=== PATIENT | female | born 1960 ===

== ENCOUNTER 2016-11-11 22:07 | Inpatient (IN) | payer OTHER ==
--- NOTE | 2016-11-11 22:27 | PDOC ---
History of Present Illness - General Stated Complaint: FEVER POST CHEMOTHERAPY Time Seen by Provider: 11/11/16 22:27 History Source: Patient Exam Limitations: No Limitations - History of Present Illness Initial Comments: 11/11/16 23:14 This is a 55-year-old female who comes in complaining of fever. Patient has history significant for breast cancer and is currently undergoing chemotherapy. Patient's last dose of chemotherapy was 8 days ago. Patient was given Neulasta at that time. Patient was having shaking chills at home and took her temperature and it was 102.6. Patient took a warm bath prior to coming in on arrival in emergency room the recorded temperature was 99.6. Patient did not take anything to bring her temperature down. Patient denies any nausea, vomiting , diarrhea, cough, congestion, urinary symptoms, rashes or skin lesions. PAST MEDICAL HISTORY: no significant history PAST SURGICAL HISTORY: no significant history FAMILY HISTORY: no pertinant history SOCIAL HISTORY: Pt lives with family and is employed. MEDICATIONS: reviewed ALLERGIES: As per nursing notes Review of Systems General: No fevers or chills, no weakness, no weight loss HEENT: No change in vision. No sore throat,. No ear pain CardioVascular: No chest pain or shortness of breath Respiratory:No cough, or wheezing. Gastrointestinal: no nausea, vomitting, diarrhea or constipation, No rectal bleeding Genitourinary: No dysuria, hematuria, or frequency Musculoskeletal: No joint or muscle pain or swelling Neurologic: No headache, vertigo, dizziness or loss of consciousness Psychiatric: nor depression Skin: No rashes or easy bruising Endocrine: no increased thirst or abnormal weight change Allergic: no skin or latex allergy All other systems reviewed and normal Exam: General: Well-nourished well-developed individual, no acute distress HEENT: Throat: Normal, tonsils normal, no erythema or exudate Neck: Supple, no meningeal signs, no lymphadenopathy Eyes::Pupils equal reactive and round, extraocular motion intact Chest: Nontender to palpation Cardiac: S1-S2 normal, regular rate and rhythm, no murmurs rubs or gallops Respiratory: Lungs clear to auscultation bilateral Abdomen: Soft, nondistended, normal bowel sounds, nontender to palpation diffusely Extremities: Warm, dry, no cyanosis, clubbing, or edema Skin: No rashes Neuro: Alert and oriented x3, nonfocal exam, grossly intact, normal gait Psych: Normal mood and affect 11/11/16 23:49 Assessment and plan: This is a 55-year-old female who is currently on chemotherapy. She is a days postchemotherapy with a fever and white count is 0.5. Patients chest x-ray is negative for any infiltrates. Discussed case with patient's doctor is Michelle Little her doctor is a Dr. Roxie Lemus phone number is [phone]. Patient will be admitted to an inpatient [facility] bed to the hospitalist service. Past History - Past Medical History Allergies/Adverse Reactions: Allergies Allergy/AdvReac Type Severity Reaction Status Date / Time sulfur [From Sulfur-8] Allergy Verified 11/11/16 22:11 tetracycline Allergy Verified 11/11/16 22:12 ED Treatment Course - LABORATORY CBC & Chemistry Diagram: 11/11/16 22:45 11/11/16 22:45 *DC/Admit/Observation/Transfer Diagnosis at time of Disposition: Neutropenia with fever, Anemia, Thrombocytopenia, Hyponatremia - Discharge Dispostion Condition at time of disposition: Stable Admit: Yes
[2016-11-11 22:59] LABS: MEAN PLT VOLUME 8.2 fl (7.5-11.1)
[2016-11-11 23:03] LABS: MCH 31.4 pg (25.7-33.7); MCHC 34.4 g/dl (32.0-36.0); MEAN CELL VOLUME 91.3 fl (80-96); RDW 13.8 % (11.6-15.6)
[2016-11-11 23:11] LABS: PH,URINE 7.5 (4.5-8); URINE APPEARANCE Clear; URINE BILIRUBIN Negative (NEGATIVE); URINE GLUCOSE (UA) Negative (NEGATIVE); URINE KETONE Negative (NEGATIVE); URINE LEUK ESTERASE Negative (NEGATIVE); URINE NITRITE Negative (NEGATIVE); URINE UROBILINOGEN 1.0 E.U/dl (0.2-1.0)
[2016-11-11 23:12] LABS: URINE BLOOD 2+ (NEGATIVE); URINE COLOR YELLOW; URINE PROTEIN 1+ (NEGATIVE)
[2016-11-11 23:12] LABS: ALBUMIN 4.2 g/dl (3.5-5.0); ALK PHOS 73 U/L (32-92); ANION GAP 5 (8-16); BILIRUBIN,TOTAL 0.7 mg/dl (0.2-1.0); CALCIUM 9.4 mg/dl (8.4-10.2); CO2 28 mmol/L (22-28); CREATININE 0.6 mg/dl (0.6-1.3); GLUCOSE,RANDOM 127 mg/dl (74-106); SGOT/AST 20 U/L (10-42); SGPT/ALT 18 U/L (10-40); TOT PROT 6.2 g/dl (6.4-8.3)
[2016-11-11 23:21] LABS: PLATELET COUNT 42 K/MM3 (134-434); WHITE BLOOD COUNT 0.5 K/mm3 (4.0-10.0)
[2016-11-11 23:38] LABS: PLATELET ESTIMATE DECREASED (NORMAL)
[2016-11-11] MEDS ORDERED: PIPERACILLIN/TAZOB 3.375 GM/50 ML PRE-DOCKED IVPB STA (23:54)
[2016-11-12] MEDS ORDERED: PIPERACILLIN/TAZOBACTAM 3.375 GM VIAL IVPB ONE (00:03)
[2016-11-12] MEDS ORDERED: CEFTRIAXONE 1 GM in DEXTROSE 5%-WATER - 50 ML IVPB ONE (00:11)
[2016-11-12] MEDS ORDERED: cefTRIAXone SODIUM 1 GM VIAL ONE (00:14)
[2016-11-12] MEDS ORDERED: ONDANSETRON 4 MG/2 ML VIAL IVPB PRN (00:47)
[2016-11-12] MEDS ORDERED: ACETAMINOPHEN 325 MG TABLET (FP) PO PRN (00:47)
--- NOTE | 2016-11-12 01:24 | HP ---
CHIEF COMPLAINT: fever PCP: Oncologist: Dr. Roxie Lemus [phone] HISTORY OF PRESENT ILLNESS: This is a 55 year old female with a past medical history of right breast cancer s/p mastectomy 08/21/16, currently on chemo, last dose 8 days ago who presented to the ED for fever. This was her 4th round of chemo; she is unsure of the drug regimen. Pt reports that she had shaking chills at home so she took her temperature and it was 102.0. She then took a warm bath and went to the ED. Since arrival in ED, her temperature has remained 99.1-99.7. Pt denies cough, SOB, abdominal pain, N/V/D. She reports constipation but finally had a large BM earlier today. ER course was notable for: (1) WBC 0.5 (2) temp 99.7 (3) CXR no acute disease Recent Travel: pt denies PAST MEDICAL HISTORY: BrCA, right PAST SURGICAL HISTORY: right mastectomy Social History: Smoking: pt denies Alcohol: previous occ glass of wine Drugs: pt denies Family History: mother age 82, lung CA, prior h/o colon CA and B/L brCA 10 years apart father age 71, radiation induced CLL, prior h/o laryngeal CA maternal GM lung CA Paternal GM breast CA Allergies erythromycin base Allergy (Verified 11/12/16 00:12)--upset stomach Penicillins Allergy (Verified 11/12/16 00:12)--rash as a child sulfur [From Sulfur-8] Allergy (Verified 11/11/16 22:11)--rash HOME MEDICATIONS: lansoprazole 30mg QD REVIEW OF SYSTEMS CONSTITUTIONAL: Present: fever, chills Absent: diaphoresis, generalized weakness, malaise, loss of appetite, weight change HEENT: Absent: rhinorrhea, nasal congestion, throat pain, throat swelling, difficulty swallowing, mouth swelling, ear pain, eye pain, visual changes CARDIOVASCULAR: Absent: chest pain, syncope, palpitations, irregular heart rate, lightheadedness , peripheral edema RESPIRATORY: Absent: cough, shortness of breath, dyspnea with exertion, orthopnea, wheezing, stridor, hemoptysis GASTROINTESTINAL: Absent: abdominal pain, abdominal distension, nausea, vomiting, diarrhea, constipation, melena, hematochezia GENITOURINARY: Absent: dysuria, frequency, urgency, hesitancy, hematuria, flank pain, genital pain MUSCULOSKELETAL: Absent: myalgia, arthralgia, joint swelling, back pain, neck pain SKIN: Absent: rash, itching, pallor HEMATOLOGIC/IMMUNOLOGIC: Absent: easy bleeding, easy bruising, lymphadenopathy, frequent infections ENDOCRINE: Absent: unexplained weight gain, unexplained weight loss, heat intolerance, cold intolerance NEUROLOGIC: Absent: headache, focal weakness or paresthesias, dizziness, unsteady gait, seizure, mental status changes, bladder or bowel incontinence PSYCHIATRIC: Absent: anxiety, depression, suicidal or homicidal ideation, hallucinations. PHYSICAL EXAMINATION Vital Signs - 24 hr 3 11/11/16 11/11/16 11/12/16 23:14 23:37 01:11 Temperature 99.7 F H 99.1 F 99.5 F Pulse Rate 89 87 Respiratory 18 18 Rate Blood Pressure 121/65 102/59 O2 Sat by Pulse 100 100 Oximetry (%) GENERAL: Awake, alert, and fully oriented, in no acute distress. HEAD: Normal with no signs of trauma. EYES: Pupils equal, round and reactive to light, extraocular movements intact, sclera anicteric, conjunctiva clear. No lid lag. EARS, NOSE, THROAT: Ears normal, nares patent, oropharynx clear without exudates. Moist mucous membranes. NECK: Normal range of motion, supple without lymphadenopathy, JVD, or masses. LUNGS: Breath sounds equal, clear to auscultation bilaterally. No wheezes, and no crackles. No accessory muscle use. HEART: Regular rate and rhythm, normal S1 and S2 without murmur, rub or gallop. ABDOMEN: Soft, nontender, not distended, normoactive bowel sounds, no guarding, no rebound, no masses. No hepatomegaly or splenomegaly. MUSCULOSKELETAL: Normal range of motion at all joints. No bony deformities or tenderness. No CVA tenderness. UPPER EXTREMITIES: 2+ pulses, warm, well-perfused. No cyanosis. No clubbing. No peripheral edema. LOWER EXTREMITIES: 2+ pulses, warm, well-perfused. No calf tenderness. No peripheral edema. NEUROLOGICAL: Cranial nerves II-XII intact. Normal speech. Normal gait. PSYCHIATRIC: Cooperative. Good eye contact. Appropriate mood and affect. SKIN: Warm, dry, normal turgor, no rashes or lesions noted, normal capillary refill. incision site right breast clean, healed well, no erythema, swelling, warmth or obvious fluid collection Laboratory Results - last 24 hr 3 11/11/16 11/11/16 11/11/16 11/12/16 22:45 22:45 23:05 00:15 WBC 0.5 L* RBC 2.89 L Hgb 9.1 L Hct 26.4 L MCV 91.3 MCHC 34.4 RDW 13.8 Plt Count 42 L* MPV 8.2 Neutrophils % 16.0 L Lymphocytes % 9.0 Platelet Estimate Decreased Sodium 129 L Potassium 3.7 Chloride 96 L Carbon Dioxide 28 Anion Gap 5 L BUN 18 Creatinine 0.6 Creat Clearance w eGFR > 60 Random Glucose 127 H Lactic Acid 0.747 Calcium 9.4 Total Bilirubin 0.7 AST 20 ALT 18 Alkaline Phosphatase 73 Total Protein 6.2 L Albumin 4.2 Urine Color Yellow Urine Appearance Clear Urine pH 7.5 Ur Specific Hale 1.015 Urine Protein 1+ H Urine Glucose (UA) Negative Urine Ketones Negative Urine Blood 2+ H Urine Nitrite Negative Urine Bilirubin Negative Urine Urobilinogen 1.0 e.u/dl Ur Leukocyte Esterase Negative ASSESSMENT/PLAN: 55yF with PMH BrCA, currently receiving chemo, presented to ED with fever. She was found to be neutropenic. She is being admitted for further management. Neutropenic fever - ceftriaxone daily - repeat PA / Lat CXR tomorrow - monitor WBC - neutropenic diet and precautions. - consider transfer to [facility], if not transferred would obtain oncology and ID consults. Thrombocytopenia - due to chemo - cont to monitor for now Hyponatremia - NS @ 125cc/hr - repeat labs in am. DVT PPX - deferred secondary to thrombocytopenia FEN - NS @ 125cc/hr - repeat BMP, mag in am - neutropenic diet, no fresh fruits or veggies Dispo: Pt currently requires inpatient management of her emergent condition. Visit type - Emergency Visit Emergency Visit: Yes ED Registration Date: 11/11/16 Care time: The patient presented to the Emergency Department on the above date and was hospitalized for further evaluation of their emergent condition. - New Patient This patient is new to me today: Yes Date on this admission: 11/12/16 - Critical Care Critical Care patient: No
[2016-11-12] MEDS ORDERED: METOCLOPRAMIDE HCL INJECTION 10 MG/2 ML VIAL IVPB PRN (01:25)
[2016-11-12] MEDS ORDERED: SODIUM CHLORIDE 1,000 ML IV SCH ×2 (01:45→10:42)
[2016-11-12 02:46] VITALS: BMI 18.7
--- NOTE | 2016-11-12 08:19 | PN ---
Physical Exam: SUBJECTIVE: Patient seen and examined, reports ongoing chills, denies any cough , chest pain or shortness of breath. OBJECTIVE: patient is a 55 year old female with a past medical history of right breast cancer (melanoma insitu), s/p mastectomy (fiber picker) 08/21/16. patient is on her fourth chemotherapy session (11/22). Her last dose was currently on chemo, last dose was on 11/03/2016, she received neupogen on 2016. patient was admitted from the emergency department for neutropenic fever. oncologist: Dr. Roxie Lemus [phone] Vital Signs Period Temp Pulse Resp BP Sys/Wheeler Pulse Ox Last 24 Hr 99.5 F-100.8 F 78-87 18-19 102-103/52-59 96-100 GENERAL: The patient is awake, alert, and fully oriented, thing, in no acute distress. HEAD: Normal with no signs of trauma. EYES: PERRL, extraocular movements intact, sclera anicteric, conjunctiva pale No ptosis. ENT: Ears normal, nares patent, oropharynx clear without exudates, moist mucous membranes. NECK: Trachea midline, full range of motion, supple. LUNGS: Breath sounds equal, clear to auscultation bilaterally, no wheezes, no crackles, no accessory muscle use. HEART: Regular rate and rhythm, S1, S2 without murmur, rub or gallop. ABDOMEN: Soft, nontender, nondistended, normoactive bowel sounds, no guarding, no rebound, no hepatosplenomegaly, no masses. EXTREMITIES: 2+ pulses, warm, well-perfused, no edema. NEUROLOGICAL: Cranial nerves II through XII grossly intact. Normal speech, gait not observed. PSYCH: Normal mood, normal affect. SKIN: Warm, dry, normal turgor, no rashes or lesions noted, right breast masectomy site,well approximated, no palpable fluid collections, no erythema noted, no tenderness. Laboratory Results - last 24 hr 11/12/16 00:15 Lactic Acid 0.747 CBC WBC 0.5 K/mm3 (4.0-10.0) L* 11/11/16 22:45 RBC 2.89 M/mm3 (3.60-5.2) L 11/11/16 22:45 Hgb 9.1 GM/dl (10.7-15.3) L 11/11/16 22:45 Hct 26.4 % (32.4-45.2) L 11/11/16 22:45 MCV 91.3 fl (80-96) 11/11/16 22:45 MCHC 34.4 g/dl (32.0-36.0) 11/11/16 22:45 RDW 13.8 % (11.6-15.6) 11/11/16 22:45 Plt Count 42 K/MM3 (134-434) L* 11/11/16 22:45 MPV 8.2 fl (7.5-11.1) 11/11/16 22:45 Neutrophils % 16.0 % (42.8-82.8) L 11/11/16 22:45 Lymphocytes % 9.0 % (8-40) 11/11/16 22:45 Platelet Estimate Decreased (NORMAL) 11/11/16 22:45 Active Medications Generic Name Dose Route Start Last Admin Trade Name Freq PRN Reason Stop Dose Admin Acetaminophen 650 mg 11/12/16 00:47 11/12/16 06:29 Tylenol - PO 650 mg Q4H PRN Administration FEVER OR PAIN Sodium Chloride 1,000 mls @ 125 mls/hr 11/12/16 01:45 11/12/16 02:00 Normal Saline - IV 125 mls/hr ASDIR JARAD Administration Metoclopramide HCl 10 mg 11/12/16 01:25 Reglan Injection - IVPB Q6H PRN NAUSEA AND/OR VOMITING Pantoprazole Sodium 40 mg 11/12/16 10:00 Protonix - PO DAILY JARAD imaging chest x-ray 11/11/2016) no infiltrates and effusions noted Chest x-ray (11/12/2016) PA and lat, no infiltrates noted effusions noted ASSESSMENT/PLAN: 1) hem/onc - WBC 1, pt is neutropenic, pending am labs, f/u blood and urine cultures - hgb 7.5, pt is asymptomatic, repeat hgb at 1800, if hgb is less than 7 will transfuse 1 unit of prbc and plt. - chest xray reviewed no infilitrates no effusion noted - cefepime ordered 2gm x 1, appreciate the input of GARCIA Burgso) for antibiotic approval - case discussed with Dr Holman (oncologist, [facility]) advised to hold transfer to [facility] due to neutropenia, agrees with cefepime. - monitor plt likely secondary due to chemo, close monitoring f/e/n - neutropenic diet - NS @ 75ml/hr ppx - protonix - hold ac due to thrombocytopenia dispo: requires inpatient care Visit type - Emergency Visit Emergency Visit: Yes ED Registration Date: 11/11/16 Care time: The patient presented to the Emergency Department on the above date and was hospitalized for further evaluation of their emergent condition. - New Patient This patient is new to me today: No - Critical Care Critical Care patient: No - Discharge Referral Referred to [facility] No
[2016-11-12 09:18] LABS: MCH 31.4 pg (25.7-33.7); MCHC 34.3 g/dl (32.0-36.0); MEAN CELL VOLUME 91.5 fl (80-96); MEAN PLT VOLUME 7.9 fl (7.5-11.1); RDW 13.3 % (11.6-15.6)
[2016-11-12 09:22] LABS: PLATELET COUNT 35 K/MM3 (134-434)
--- NOTE | 2016-11-12 09:42 | PN ---
Progress Note (short form) - Note Progress Note: ID consult dictated Febrile neutropenia, possible neutropenic sepsis R Breast ca s/p 4th cycle AC 11/03/16 PCN allergy Pending c/s empiric cefepime 2gm q8h Neutropenic precautions
[2016-11-12] MEDS ORDERED: CEFEPIME HCL 2 GM VIAL (RESTRICTED TO ID) IVPB ONE (09:45)
[2016-11-12 09:48] LABS: CALCIUM 8.4 mg/dl (8.4-10.2); CREATININE 0.4 mg/dl (0.6-1.3)
[2016-11-12 09:51] LABS: MAGNESIUM 1.8 mg/dL (1.8-2.4); PHOSPHOROUS 2.6 mg/dl (2.5-4.6)
[2016-11-12] MEDS: PANTOPRAZOLE 40 MG TABLET (FP) PO SCH (10:11)
[2016-11-12] MEDS: CEFEPIME HCL 2 GM VIAL (RESTRICTED TO ID) IVPB SCH ×2 (10:12→17:58)
[2016-11-12 11:39] LABS: PLATELET ESTIMATE MARKEDLY DECREASED (NORMAL)
--- NOTE | 2016-11-12 11:39 | CONS ---
DATE OF CONSULTATION: DATE OF DICTATION: 11/12/2016 HISTORY OF PRESENT ILLNESS: The patient is a 55-year-old female evaluated for febrile neutropenia. The patient has a history of right breast CA. She is status post mastectomy and chemotherapy. She completed her fourth cycle of Adriamycin and Cytoxan on Thursday, November 03, 2016. She began to feel unwell approximately 24-48 hours later with nausea and weakness. Twenty-four hours prior to admission she developed onset of fever to 102.6 associated with shaking chills. She presented to the emergency room, where she was found to have a white blood cell count of 0.5. Cultures were obtained and she was given a dose of ceftriaxone. Patient complains of weakness. She denied any focal complaint. No complaints of chest pain, shortness of breath, cough, sputum production, no vomiting or diarrhea. No dysuria. She does not have a port in place. No complaints of cellulitis or catheter-related phlebitis. PAST MEDICAL HISTORY: Positive for right breast cancer. She was diagnosed in July of 2016. She was diagnosed with stage 2 estrogen receptor positive cancer. She underwent a modified radical mastectomy with placement of a tissue lay out and detail drafter and lymph node dissection. Postoperatively, she received 4 cycles of Adriamycin and Cytoxan. She received Neulasta on November 04. PAST SURGICAL HISTORY: She is status post mastectomy August 21, 2016. ALLERGIES: ERYTHROMYCIN (GI upset), PENICILLIN (rash in childhood), and SULFA (rash). No history of anaphylaxis to PENICILLIN. MEDICATIONS: 1. Protonix. 2. Reglan. 3. Tylenol. SOCIAL HISTORY: She works in [place], does office work. She is a nonsmoker, nondrinker. SYSTEMS REVIEW: Neurologic: No loss of consciousness, seizure activity, focal weakness. Cardiac: Negative chest pain or palpitations. Respiratory: Negative cough or sputum production. Gastrointestinal: No vomiting or diarrhea. Genitourinary: Negative for urinary tract infection. LABORATORY DATA: White count 0.5, hematocrit 26.4, platelet count 42. Sodium 129, BUN 18, creatinine 0.6. Urinalysis negative leukocyte esterase. Chest x-ray negative for acute infiltrate. PHYSICAL EXAMINATION: General: She is awake and alert. She is not acutely toxic-appearing. Vitals: Temperature 100.8, blood pressure 103/52, pulse 78 regular, respirations 19 per minute. HEENT: Sclera anicteric. Dry mucous membranes. No mucositis. Neck: Supple, no palpable nodes. Heart: Sounds S1, S2. Lungs: Clear bilaterally. Breast: Examination of the right breast: There is a healed surgical scar present over the right breast. No evidence of infection. Abdomen: Soft, no tenderness elicited, no mass, rebound or rigidity. Extremities: Negative for edema. IMPRESSION: 1. Febrile neutropenia, possible neutropenic sepsis. 2. Right breast cancer, status post fourth cycle of chemotherapy November 03, 2016. 3. PENICILLIN ALLERGY. Pending cultures, empiric antibiotic coverage in this febrile neutropenic patient with cefepime 2 g IV piggyback every 8 hours. Aware of PENICILLIN ALLERGY. Neutropenic precautions. Will follow. Thank you for the kind referral. SILAS HUBBARD M.D. [id number]
[2016-11-12] MEDS ORDERED: PT OWN MED DRAWER 7, Y5N ONE (17:47)
[2016-11-12 19:04] LABS: MCH 32.1 pg (25.7-33.7); MCHC 35.3 g/dl (32.0-36.0); MEAN PLT VOLUME 7.7 fl (7.5-11.1); RDW 13.6 % (11.6-15.6)
[2016-11-12 19:15] LABS: PLATELET COUNT 27 K/MM3 (134-434); WHITE BLOOD COUNT 1.3 K/mm3 (4.0-10.0)
[2016-11-12 19:22] LABS: URINE BACTERIA FEW /hpf (NEGATIVE); URINE RBC 0-2 /hpf (0-3)
[2016-11-13] MEDS ORDERED: PT OWN MED DRAWER 7, Y5N ONE ×3 (00:47→17:03)
[2016-11-13] MEDS: CEFEPIME HCL 2 GM VIAL (RESTRICTED TO ID) IVPB SCH ×3 (01:47→17:08)
[2016-11-13 08:53] LABS: BASOPHIL 2.5 % (0-2.0); EOSINOPHIL 0.1 % (0-4.5); MCH 31.6 pg (25.7-33.7); MCHC 34.1 g/dl (32.0-36.0); MEAN CELL VOLUME 92.6 fl (80-96); MEAN PLT VOLUME 7.5 fl (7.5-11.1); NEUTROPHILS 65.2 % (42.8-82.8); RDW 13.2 % (11.6-15.6)
[2016-11-13 09:07] LABS: PLATELET COUNT 22 K/MM3 (134-434); WHITE BLOOD COUNT 1.8 K/mm3 (4.0-10.0)
--- NOTE | 2016-11-13 09:33 | PN ---
Progress Note, Physician History of Present Illness: Awake, alert C/O mild stomatitis No c/o fever/ chills No dyspnea/ cough/ sputum No dysuria No diarrhea No gingival bleeding, hematuria, rectal or vaginal bleeding - Current Medication List Current Medications: Active Medications Acetaminophen (Tylenol -) 650 mg PO Q4H PRN PRN Reason: FEVER OR PAIN Last Admin: 11/12/16 06:29 Dose: 650 mg Cefepime HCl (Maxipime (Restricted To Id) -) 2 gm IVPB Q8H-IV JARAD PRN Reason: Protocol Last Admin: 11/13/16 01:47 Dose: 2 gm Sodium Chloride (Normal Saline -) 1,000 mls @ 100 mls/hr IV ASDIR JARAD Lidocaine/Aluminum/Magnesium/Simeth (Magic Mouthwash *Sjr Formula* -) 5 ml MM Q6HPO JARAD Metoclopramide HCl (Reglan Injection -) 10 mg IVPB Q6H PRN PRN Reason: NAUSEA AND/OR VOMITING Pantoprazole Sodium (Protonix -) 40 mg PO DAILY [facility] Last Admin: 11/12/16 10:11 Dose: 40 mg - Objective Vital Signs: Vital Signs Temperature 99.1 F 11/13/16 06:00 Pulse Rate 69 11/13/16 06:00 Respiratory Rate 19 11/13/16 06:00 Blood Pressure 95/43 11/13/16 06:00 O2 Sat by Pulse Oximetry (%) 97 11/13/16 06:00 Constitutional: Yes: No Distress, Pallor, Thin Eyes: Yes: Conjunctiva Clear HENT: Yes: Other (superficial ulcer, hard palate) Cardiovascular: Yes: Regular Rate and Rhythm, S1, S2 Respiratory: Yes: CTA Bilaterally Gastrointestinal: Yes: Normal Bowel Sounds, Soft. No: Tenderness Edema: No Labs: CBC, BMP 11/13/16 07:00 Assessment/Plan Febrile neutropenia/ neutropenic sepsis ANC 1.1 Pancytopenia -likely chemo-induced Hb 7.3 plt 22 R breast ca Await c/s Continue empiric cefepime Hem/Onc evaluation for anemia/ severe thrombocytopenia
[2016-11-13] MEDS: LACTOBACILLUS ACIDOPHILUS 1 EACH TAB (FP) PO SCH (09:58)
[2016-11-13] MEDS: PANTOPRAZOLE 40 MG TABLET (FP) PO SCH (09:58)
[2016-11-13] MEDS: SODIUM CHLORIDE 1,000 ML IV SCH ×2 (10:01→23:58)
[2016-11-13] MEDS: MAG HYDROX/ALH/SMC/DPHA/LIDO 240 ML MOUTHWASH MM SCH ×3 (12:06→23:58)
[2016-11-13 12:14] LABS: ALBUMIN 3.1 g/dl (3.5-5.0); BILIRUBIN,TOTAL 0.6 mg/dl (0.2-1.0); CREATININE 0.4 mg/dl (0.6-1.3); MAGNESIUM 1.8 mg/dL (1.8-2.4); SGOT/AST 18 U/L (10-42); SGPT/ALT 14 U/L (10-40); TOT PROT 4.8 g/dl (6.4-8.3)
[2016-11-13 12:30] LABS: ALK PHOS 52 U/L (32-92); ANION GAP 2 (8-16); CO2 25 mmol/L (22-28); GLUCOSE,RANDOM 93 mg/dl (74-106); PHOSPHOROUS 2.2 mg/dl (2.5-4.6)
[2016-11-13] MEDS ORDERED: MINERAL OIL/PETROLAT/WATER TOPICAL CREAM 113 GM JAR TP PRN (12:52)
--- NOTE | 2016-11-13 13:07 | PN ---
[id number] down, patient also reports feeling tired. OBJECTIVE: patient is a 55 year old female with a past medical history of right breast cancer (melanoma insitu), s/p mastectomy ([employer]) 08/21/16. patient is on her fourth chemotherapy session, dose dense AC, (11/22). Her last dose of chemo (11/03/2016), she received neupogen on 11/04/2016. patient was admitted from the emergency department for neutropenic fever. patient is noted to have severe pancytopenia. oncologist: Dr. Roxie Lemus [phone] Vital Signs Period Temp Pulse Resp BP Sys/Wheeler Pulse Ox Last 24 Hr 99.0 F-99.3 F 69-84 17-20 91-101/43-60 97-100 GENERAL: The patient is awake, alert, and fully oriented, thing, in no acute distress. HEAD: Normal with no signs of trauma. EYES: PERRL, extraocular movements intact, sclera anicteric, conjunctiva pale No ptosis. ENT: Ears normal, nares patent, oropharynx clear without exudates, moist mucous membranes. NECK: Trachea midline, full range of motion, supple. LUNGS: Breath sounds equal, clear to auscultation bilaterally, no wheezes, no crackles, no accessory muscle use. HEART: Regular rate and rhythm, S1, S2 without murmur, rub or gallop. ABDOMEN: Soft, nontender, nondistended, normoactive bowel sounds, no guarding, no rebound, no hepatosplenomegaly, no masses. EXTREMITIES: 2+ pulses, warm, well-perfused, no edema. NEUROLOGICAL: Cranial nerves II through XII grossly intact. Normal speech, gait not observed. PSYCH: Normal mood, normal affect. SKIN: Warm, dry, normal turgor, no rashes or lesions noted, right breast masectomy site,well approximated, no palpable fluid collections, no erythema noted, no tenderness. Laboratory Results - last 24 hr 11/12/16 11/12/16 11/12/16 11:45 11:45 18:47 WBC 1.3 L* RBC 2.29 L Hgb 7.4 L Hct 20.9 L MCV 91.0 MCHC 35.3 RDW 13.6 Plt Count 27 L* D MPV 7.7 Neutrophils % Y Lymphocytes % Y Monocytes % Eosinophils % Basophils % Sodium Potassium Chloride Carbon Dioxide Anion Gap BUN Creatinine Creat Clearance w eGFR Random Glucose Calcium Phosphorus Magnesium Total Bilirubin AST ALT Alkaline Phosphatase Total Protein Albumin Blood Type O POSITIVE O POSITIVE Antibody Screen Negative Crossmatch See Detail 11/13/16 11/13/16 07:00 08:39 WBC 1.8 L* D RBC 2.33 L Hgb 7.3 L Hct 21.5 L MCV 92.6 MCHC 34.1 RDW 13.2 Plt Count 22 L* MPV 7.5 Neutrophils % 65.2 D Lymphocytes % 22.5 D Monocytes % 9.7 Eosinophils % 0.1 Basophils % 2.5 H Sodium 133 L Potassium 3.3 L Chloride 106 Carbon Dioxide 25 Anion Gap 2 L BUN 8 Creatinine 0.4 L Creat Clearance w eGFR > 60 Random Glucose 93 Calcium 8.0 L Phosphorus 2.2 L Magnesium 1.8 Total Bilirubin 0.6 AST 18 ALT 14 D Alkaline Phosphatase 52 D Total Protein 4.8 L D Albumin 3.1 L D Blood Type Antibody Screen Crossmatch Active Medications Generic Name Dose Route Start Last Admin Trade Name Freq PRN Reason Stop Dose Admin Acetaminophen 650 mg 11/12/16 00:47 11/12/16 06:29 Tylenol - PO 650 mg Q4H PRN Administration FEVER OR PAIN Cefepime HCl 2 gm 11/12/16 10:00 11/13/16 09:58 Maxipime (Restricted To Id) - IVPB 2 gm Q8H-IV JARAD Administration Protocol Docusate Sodium 100 mg 11/13/16 14:00 Colace - PO TID JARAD Sodium Chloride 1,000 mls @ 100 mls/hr 11/12/16 21:40 11/13/16 10:01 Normal Saline - IV Not Given ASDIR JARAD Lactobacillus Acidophilus 1 tab 11/13/16 10:00 11/13/16 09:58 Bacid - PO 1 tab DAILY JARAD Administration Lidocaine/Aluminum/Magnesium/Simeth 5 ml 11/13/16 12:00 11/13/16 12:06 Magic Mouthwash *Sjr Formula* - MM 5 ml Q6HPO JARAD Administration Metoclopramide HCl 10 mg 11/12/16 01:25 Reglan Injection - IVPB Q6H PRN NAUSEA AND/OR VOMITING Multi-Ingredient Lotion 1 applic 11/13/16 12:52 Eucerin (Small Jar) - TP BID PRN DRY SKIN Pantoprazole Sodium 40 mg 11/12/16 10:00 11/13/16 09:58 Protonix - PO 40 mg DAILY JARAD Administration Microbiology 11/11/16 23:05 Urine - Urine Clean Catch Urine Culture - Final NO GROWTH OBTAINED 11/12/16 12:14 Throat Throat Culture - Final NO BETA HEMOLYTIC STREPTOCOCCI ISOLATED 11/12/16 12:14 Throat Group A Strep Rapid Antigen - Final 11/11/16 22:45 Blood - Peripheral Venous Blood Culture - Preliminary NO GROWTH OBTAINED AFTER 24 HOURS, INCUBATION TO CONTINUE FOR 4 DAYS. 11/11/16 22:45 Blood - Peripheral Venous Blood Culture - Preliminary NO GROWTH OBTAINED AFTER 24 HOURS, INCUBATION TO CONTINUE FOR 4 DAYS. imaging chest x-ray 11/11/2016) no infiltrates and effusions noted Chest x-ray (11/12/2016) PA and lat, no infiltrates noted effusions noted ASSESSMENT/PLAN: 1) hem/onc neutropenic fever - WBC 1.3 trending upward, close monitoring, blood and urine culture NTD - continue cefepime, Dr Pemberton, ID consulted and following normocytic anemia - hgb 7.4, pt is symptomatic and hypotensive will order 1 unit of PRBC - recheck hgb in am thrombocytopenia - trending downward, will order heparin induced antibody - appreciate input of heme/onc Dr Rivera - case discussed with Dr Holman (oncologist, [facility]) f/e/n - neutropenic diet - NS @ 100ml/hr - replete potassium and phos, kphos ordered ppx - protonix - hold ac due to thrombocytopenia dispo: requires inpatient care Visit type - Emergency Visit Emergency Visit: Yes ED Registration Date: 11/11/16 Care time: The patient presented to the Emergency Department on the above date and was hospitalized for further evaluation of their emergent condition. - New Patient This patient is new to me today: No - Critical Care Critical Care patient: No - Discharge Referral Referred to [facility] No
[2016-11-13] MEDS ORDERED: SUCRALFATE 1 GM/10 ML UNIT DOSE CUPS PO PRN (13:28)
[2016-11-13] MEDS: DOCUSATE SODIUM 100 MG CAPSULE (FP) PO SCH ×2 (13:57→22:00)
[2016-11-13] MEDS ORDERED: POTASSIUM CHLORIDE TABS 20 MEQ TABLET.ER (FP) PO ONE (14:00)
[2016-11-13] MEDS ORDERED: POTASSIUM PHOSPHATE 15 MM in DEXTROSE 5%-WATER - 250 ML IVPB ONE ×2 (14:00→18:00)
[2016-11-13] MEDS ORDERED: REFRIGERATED ANITBIOTICS ONE ×2 (17:05→23:41)
--- NOTE | 2016-11-13 17:40 | CONSULT ---
Consult Consult Specialty:: onc Referred by:: bk inman Reason for Consultation:: pancytopenia - History of Present Illness Chief Complaint: 55 yof adm w febrile pancytopenia at C4 D11 adj AC for breast cancer History of Present Illness: Pt started chemotx for breast cancer (dose dense AC) 09/02 and has rec'd C4 11d ago w neulasta. Has not had fever or any known neutropenia w prev cycles. She does not that h/h had been dropping and she has not had a transfusion. Also reports being told that her plt count prior to rec'ing chemotx was perhaps not quite nl. Adm w fever/chills; notes sl non-productive cough and few mouth sores. Has defervesced on abx here and feels much better. Denies any bleeding aside from some dried blood in nares - Past Medical History ...: No - Alcohol/Substance Use Hx Alcohol Use: No - Smoking History Smoking history: Never smoked Have you smoked in the past 12 months: No Home Medications - Allergies Allergies/Adverse Reactions: Allergies Allergy/AdvReac Type Severity Reaction Status Date / Time erythromycin base Allergy Verified 11/12/16 00:12 Penicillins Allergy Verified 11/12/16 00:12 sulfur [From Sulfur-8] Allergy Verified 11/11/16 22:11 Family Disease History - Family Disease History Family Disease History: CA: Mother (lung) Review of Systems - Review of Systems Constitutional: reports: Lethargy Cardiovascular: reports: No Symptoms Respiratory: reports: No Symptoms Physical Exam Vital Signs: Vital Signs Temperature 99.1 F 11/13/16 06:00 Pulse Rate 69 11/13/16 06:00 Respiratory Rate 19 11/13/16 06:00 Blood Pressure 95/43 11/13/16 06:00 O2 Sat by Pulse Oximetry (%) 97 11/13/16 06:00 Constitutional: Yes: No Distress, Calm, Pallor, Other (non-toxic) Eyes: Yes: WNL HENT: Yes: Other (ulcer central palate and right lateral tongue) Neck: Yes: WNL Cardiovascular: Yes: Regular Rate and Rhythm Respiratory: Yes: CTA Bilaterally Gastrointestinal: Yes: WNL, Normal Bowel Sounds, Soft Edema: No Integumentary: Yes: Other (no petechiae or ecchymoses) Neurological: Yes: WNL Labs: CBC, BMP 11/13/16 07:00 11/13/16 08:39 Assessment/Plan severe febrile pancytopenia at C4 D11 chemotx (dose dense AC) for breast cancer cxs thus far neg; cont abx as outlined per ID wbc improving; t-penia has progressed underlying plt issue? P smear shows markedly dec plts/neutrophils; no plt clumping; no schistos; mild t gran/DBs agree w transfuse PCs; f/u cbc and will transfuse plts pend count anticip all counts to improve cont mucositis cocktail neutropenic/t-penic precautions foll'ing w you d/w team
[2016-11-13 18:44] LABS: ACTIVATED PTT 29.8 SECONDS (24.0-38.9)
[2016-11-13 18:48] LABS: INR 1.18 (0.82-1.09); PROTHROMBIN TIME (PATIENT) 13.2 SEC (10.2-13.0)
[2016-11-13 18:52] LABS: MCHC 34.3 g/dl (32.0-36.0); WHITE BLOOD COUNT 3.2 K/mm3 (4.0-10.0)
[2016-11-13 18:56] LABS: MEAN CELL VOLUME 90.3 fl (80-96); MEAN PLT VOLUME 9.7 fl (7.5-11.1); RDW 14.1 % (11.6-15.6)
[2016-11-13 19:04] LABS: PLATELET COUNT 22 K/MM3 (134-434)
[2016-11-14] MEDS ORDERED: PT OWN MED DRAWER 7, Y5N ONE ×2 (01:14→12:23)
[2016-11-14] MEDS: CEFEPIME HCL 2 GM VIAL (RESTRICTED TO ID) IVPB SCH ×2 (01:19→09:57)
[2016-11-14] MEDS: DOCUSATE SODIUM 100 MG CAPSULE (FP) PO SCH ×3 (05:52→21:40)
[2016-11-14] MEDS: MAG HYDROX/ALH/SMC/DPHA/LIDO 240 ML MOUTHWASH MM SCH ×4 (05:55→23:25)
[2016-11-14 08:56] LABS: BASOPHIL 0.2 % (0-2.0); EOSINOPHIL 0.2 % (0-4.5); MCHC 34.3 g/dl (32.0-36.0); MEAN CELL VOLUME 90.2 fl (80-96); MEAN PLT VOLUME 8.3 fl (7.5-11.1); NEUTROPHILS 74.3 % (42.8-82.8); PLATELET COUNT 59 K/MM3 (134-434); WHITE BLOOD COUNT 3.1 K/mm3 (4.0-10.0)
[2016-11-14 09:12] LABS: ALBUMIN 3.2 g/dl (3.5-5.0); ALK PHOS 55 U/L (32-92); ANION GAP 1 (8-16); BILIRUBIN,TOTAL 0.5 mg/dl (0.2-1.0); CALCIUM 8.6 mg/dl (8.4-10.2); CO2 27 mmol/L (22-28); CREATININE 0.4 mg/dl (0.6-1.3); GLUCOSE,RANDOM 89 mg/dl (74-106); PHOSPHOROUS 2.5 mg/dl (2.5-4.6); SGOT/AST 16 U/L (10-42); SGPT/ALT 15 U/L (10-40); TOT PROT 5.1 g/dl (6.4-8.3)
[2016-11-14] MEDS: LACTOBACILLUS ACIDOPHILUS 1 EACH TAB (FP) PO SCH (09:58)
--- NOTE | 2016-11-14 10:12 | PN ---
Progress Note, Physician History of Present Illness: Awake, alert No complaints No fever/ chills WBC, plt improved Cultures no growth - Current Medication List Current Medications: Active Medications Acetaminophen (Tylenol -) 650 mg PO Q4H PRN PRN Reason: FEVER OR PAIN Last Admin: 11/12/16 06:29 Dose: 650 mg Cefepime HCl (Maxipime (Restricted To Id) -) 2 gm IVPB Q8H-IV JARAD PRN Reason: Protocol Last Admin: 11/14/16 09:57 Dose: 2 gm Docusate Sodium (Colace -) 100 mg PO TID [facility] Last Admin: 11/14/16 05:52 Dose: 100 mg Sodium Chloride (Normal Saline -) 1,000 mls @ 100 mls/hr IV ASDIR [facility] Last Admin: 11/13/16 23:58 Dose: 100 mls/hr Lactobacillus Acidophilus (Bacid -) 1 tab PO DAILY [facility] Last Admin: 11/14/16 09:58 Dose: 1 tab Lidocaine/Aluminum/Magnesium/Simeth (Magic Mouthwash *Sjr Formula* -) 5 ml MM Q6HPO [facility] Last Admin: 11/14/16 05:55 Dose: 5 ml Metoclopramide HCl (Reglan Injection -) 10 mg IVPB Q6H PRN PRN Reason: NAUSEA AND/OR VOMITING Multi-Ingredient Lotion (Eucerin (Small Jar) -) 1 applic TP BID PRN PRN Reason: DRY SKIN Last Admin: 11/13/16 17:09 Dose: 1 applic Sucralfate (Carafate Oral Suspension -) 1 gm PO QID PRN PRN Reason: INDIGESTION - Objective Vital Signs: Vital Signs Temperature 98.2 F 11/14/16 06:00 Pulse Rate 62 11/14/16 06:00 Respiratory Rate 18 11/14/16 10:01 Blood Pressure 108/53 11/14/16 06:00 O2 Sat by Pulse Oximetry (%) 97 11/14/16 10:01 Constitutional: Yes: No Distress Eyes: Yes: Conjunctiva Clear Cardiovascular: Yes: Regular Rate and Rhythm, S1, S2 Respiratory: Yes: CTA Bilaterally Gastrointestinal: Yes: Normal Bowel Sounds, Soft. No: Tenderness Edema: No Labs: CBC, BMP 11/14/16 08:37 11/14/16 08:37 INR, PTT INR 1.18 (0.82-1.09) 11/13/16 18:20 Assessment/Plan Febrile neutropenia/ neutropenic sepsis ANC 2.3 Pancytopenia -likely chemo-induced. S/P transfusion PRRBCs, plt. Hb 8.6 plt 59 R breast ca Cultures negative Neutropenia resolved Substitute po levaquin 500mg po qd x7d Discharge when cleared by Oncology
[2016-11-14] MEDS: LEVOFLOXACIN 500 MG TABLET (FP) PO SCH (10:39)
[2016-11-14] MEDS ORDERED: REFRIGERATED ANITBIOTICS ONE (12:25)
--- NOTE | 2016-11-14 14:49 | DS ---
Physical Exam: SUBJECTIVE: Patient seen and examined, reports feeling much better, ambulating at bedside, denies feeling lightheaded upon ambulation, fatigue is much improved , denies any chest pain or shortness of breath. OBJECTIVE: patient is a 55 year old female with a past medical history of right breast cancer s/p mastectomy 08/21/16, currently on chemo, dose dense AC, last dose 11/03/16, 8 days ago who presented to the ED for fever. This was her 4th round of chemo. Pt reports that she had shaking chills at home so she took her temperature and it was 102.0. She then took a warm bath and went to the ED. Since arrival in ED, her temperature has remained 99.1-99.7. Pt denies cough, SOB, abdominal pain, N/V/D. She reports constipation but finally had a large BM earlier today. ER course was notable for: (1) WBC 0.5 (2) temp 99.7 (3) CXR no acute disease Vital Signs Period Temp Pulse Resp BP Sys/Wheeler Pulse Ox Last 24 Hr 97.8 F-98.9 F 62-68 16-20 102-113/53-58 97-99 PHYSICAL EXAM GENERAL: The patient is awake, alert, and fully oriented, thing, in no acute distress. HEAD: Normal with no signs of trauma. EYES: PERRL, extraocular movements intact, sclera anicteric, conjunctiva pale No ptosis. ENT: Ears normal, nares patent, oropharynx clear without exudates, moist mucous membranes, ulcer noted to soft palate. NECK: Trachea midline, full range of motion, supple. LUNGS: Breath sounds equal, clear to auscultation bilaterally, no wheezes, no crackles, no accessory muscle use. HEART: Regular rate and rhythm, S1, S2 without murmur, rub or gallop. ABDOMEN: Soft, nontender, nondistended, normoactive bowel sounds, no guarding, no rebound, no hepatosplenomegaly, no masses. EXTREMITIES: 2+ pulses, warm, well-perfused, no edema. NEUROLOGICAL: Cranial nerves II through XII grossly intact. Normal speech, gait not observed. PSYCH: Normal mood, normal affect. SKIN: Warm, dry, normal turgor, no rashes or lesions noted, right breast masectomy site,well approximated, no palpable fluid collections, no erythema noted, no tenderness. LABS Laboratory Results - last 24 hr 11/12/16 11/13/16 11/13/16 11:45 18:20 18:20 WBC 3.2 L D RBC 2.77 L Hgb 8.6 L D Hct 25.0 L D MCV 90.3 MCHC 34.3 RDW 14.1 Plt Count 22 L* MPV 9.7 D Neutrophils % Y Lymphocytes % Y Monocytes % Eosinophils % Basophils % INR 1.18 PTT (Actin FS) 29.8 Sodium Potassium Chloride Carbon Dioxide Anion Gap BUN Creatinine Creat Clearance w eGFR Random Glucose Calcium Phosphorus Magnesium Total Bilirubin AST ALT Alkaline Phosphatase Total Protein Albumin Crossmatch See Detail 11/14/16 11/14/16 08:37 08:37 WBC 3.1 L RBC 2.77 L Hgb 8.6 L Hct 25.0 L MCV 90.2 MCHC 34.3 RDW 14.0 Plt Count 59 L D MPV 8.3 D Neutrophils % 74.3 Lymphocytes % 14.8 D Monocytes % 10.5 H Eosinophils % 0.2 D Basophils % 0.2 INR PTT (Actin FS) Sodium 136 Potassium 4.0 D Chloride 108 H Carbon Dioxide 27 Anion Gap 1 L BUN 7 Creatinine 0.4 L Creat Clearance w eGFR > 60 Random Glucose 89 Calcium 8.6 Phosphorus 2.5 Magnesium 2.0 Total Bilirubin 0.5 AST 16 ALT 15 Alkaline Phosphatase 55 Total Protein 5.1 L Albumin 3.2 L Crossmatch Microbiology 11/11/16 22:45 Blood - Peripheral Venous Blood Culture - Preliminary NO GROWTH OBTAINED AFTER 48 HOURS, INCUBATION TO CONTINUE FOR 3 DAYS. 11/11/16 22:45 Blood - Peripheral Venous Blood Culture - Preliminary NO GROWTH OBTAINED AFTER 48 HOURS, INCUBATION TO CONTINUE FOR 3 DAYS. 11/11/16 23:05 Urine - Urine Clean Catch Urine Culture - Final NO GROWTH OBTAINED 11/12/16 12:14 Throat Throat Culture - Final NO BETA HEMOLYTIC STREPTOCOCCI ISOLATE imaging chest x-ray 11/11/2016) no infiltrates and effusions noted Chest x-ray (11/12/2016) PA and lat, no infiltrates noted effusions noted HOSPITAL COURSE: Patient was admitted as an inpatient from the emergency department for neutropenic fever. Upon admission her WBC was noted to be 0.5, she was immediately placed on neutropenic precautions. She was given IV hydration. Patient was mann cultured which is negative to date. She was treated with cefepime 2gm q8h for [address] Pemberton, infectious disease was consulted and followed throughout hospitalization. In addition patient was noted to be pancytopenic likely secondary to chemo induced. Dr Holman patient's private oncologist at [facility] was contacted on hospital day 1. The [place] of [place] [facility] [place], however, due to patient's severe neutropenia the risk of increase exposure during transfer outweighed the benefits. Dr Holman agree with antibiotic treatment plan. On hospital day 2 , she became hypotensive, lightheaded with worsening of dyspnea upon exertion. She was given 1 unit of prbc with 1 unit of platelets. Heme/onc, Dr Barker was consulted and blood smear (prior to transfusion) was noted to have decreased platelets and neutrophils with no platelet clumping. patient's hgb improved to 8.6 post transfusion and she became normotensive with resolution of lightheadness with dypnea upon exertion. heparin induced antibody is pending. Patient was transitioned to PO antibiotic which she will continue for 7 days post hospitalization. PLAN * upon discharge it was discussed with Dr Holman ([facility] [place] patient will have her CBC redra[place] on 11/17/16 at [facility] [place], patient agrees with plan and verbalizes understanding. * levaquin 500mg qd for 7 days * return precautions reviewed, ie chest pain, shortness of breath, or fever ( above 100.8) must return to ED Date of Admission:11/11/16 Date of Discharge: 11/14/16 Minutes to complete discharge: 45 Discharge Summary Reason For Visit: FEVER POST CHEMOTHERAPY Current Active Problems Anemia (Acute) Hyponatremia (Acute) Neutropenia with fever (Acute) Thrombocytopenia (Acute) Condition: Improved - Instructions Diet, Activity, Other Instructions: - PLEASE FOLLOW UP AT THE [facility] ON THURSDAY, NOVEMBER 17, 2016 FOR A REPEAT CBC - CONTINUE LEVAQUIN DAILY PRESCRIBED - IF CHEST PAIN, SHORTNESS OF BREATH OR FEVER DEVELOPS PLEASE RETURN TO THE EMERGENCY DEPARTMENT. Disposition: HOME This patient is new to me today: No Emergency Visit: Yes ED Registration Date: 11/11/16 Care time: The patient presented to the Emergency Department on the above date and was hospitalized for further evaluation of their emergent condition. Critical Care patient: No - Discharge Referral Referred to [facility] No
[2016-11-15 06:08] VITALS: BP 96/48; PULSE 59
[2016-11-15] MEDS: DOCUSATE SODIUM 100 MG CAPSULE (FP) PO SCH (06:20)
[2016-11-15] MEDS: MAG HYDROX/ALH/SMC/DPHA/LIDO 240 ML MOUTHWASH MM SCH (06:20)
[2016-11-15] MEDS: LEVOFLOXACIN 500 MG TABLET (FP) PO SCH (06:20)
[2016-11-15 07:41] LABS: MCH 30.7 pg (25.7-33.7); MCHC 33.6 g/dl (32.0-36.0); MEAN CELL VOLUME 91.3 fl (80-96); MEAN PLT VOLUME 8.5 fl (7.5-11.1); PLATELET COUNT 56 K/MM3 (134-434); RDW 14.1 % (11.6-15.6); WHITE BLOOD COUNT 3.2 K/mm3 (4.0-10.0)
[2016-11-15 08:28] LABS: PLATELET ESTIMATE DECRESEAD (NORMAL)
[2016-11-15 09:18] VITALS: TEMP 98.2
[2016-11-15] MEDS: LACTOBACILLUS ACIDOPHILUS 1 EACH TAB (FP) PO SCH (09:39)
== END 2016-11-15 11:30 | disposition home or self-care (01) | DRG 872 ==
LOC: FER 22:07 → FM/S 23:44
PROVIDERS: ADMIT Internal Medicine; ATTEND Registered Nurse Emergency
PROC: 30233R1 Transfusion of Nonautologous Platelets into Peripheral Vein, Percutaneous Approach (ICD-10-PCS; principal; 2016-11-13)
PROC: 30233N1 Transfusion of Nonautologous Red Blood Cells into Peripheral Vein, Percutaneous Approach (ICD-10-PCS; 2016-11-13)
DX: A41.89 Other specified sepsis (principal); E87.1 Hypo-osmolality and hyponatremia; D70.8 Other neutropenia; R50.81 Fever presenting with conditions classified elsewhere; T45.1X5A Adverse effect of antineoplastic and immunosuppressive drugs, initial encounter; C50.911 Malignant neoplasm of unspecified site of right female breast; D70.1 Agranulocytosis secondary to cancer chemotherapy; D64.81 Anemia due to antineoplastic chemotherapy; D69.59 Other secondary thrombocytopenia; Z88.0 Allergy status to penicillin
CPT/HCPCS: 36415; 36430; 71010-TC; 71020-TC; 80048; 80053; 81003; 81015; 83605; 83735; 84100; 85025; 85610; 85730; 86022; 86850; 86900; 86901; 86922; 87040; 87070; 87086; 87430; 99281-25; P9034; P9038; P9058

== ENCOUNTER 2016-12-02 21:50 | Emergency (ER) | payer OTHER ==
--- NOTE | 2016-12-02 21:57 | PDOC ---
History of Present Illness - General Chief Complaint: Respiratory Stated Complaint: COLD/LOW GRADE FEVER Time Seen by Provider: 12/02/16 21:55 History Source: Patient Exam Limitations: No Limitations - History of Present Illness Initial Comments: 12/02/16 21:56 CHIEF COMPLAINT: fever PCP: Oncologist: Dr. Roxie Lemus [phone] HISTORY OF PRESENT ILLNESS: This is a 55 year old female with a past medical history of right breast cancer s/p mastectomy 08/21/16, currently on chemotherapy (4 AC, s/p 2nd Taxol, due for taxol on thursday) who presents to the ER with a complaint of upper respiratory infection and low grade fevers Pt states she has noted a head cold since yesterday Early this morning she had a temperature of 100.6 She again have a fever this evening of 100 She spoke with her oncologist who was concerned because her last set of labs were last Thursday. Oncologist recommended that she go to the ER to have labs done. She denies cough She has noticed rhinorrhea and sneezing No abdominal pain No nausea, vomiting, diarrhea No urinary complaints or flank pain No rash PAST MEDICAL HISTORY: BrCA, right PAST SURGICAL HISTORY: right mastectomy Social History: Smoking: pt denies Alcohol: previous occ glass of wine Drugs: pt denies Family History: mother age 82, lung CA, prior h/o colon CA and B/L brCA 10 years apart father age 71, radiation induced CLL, prior h/o laryngeal CA maternal GM lung CA Paternal GM breast CA Allergies erythromycin base Allergy (Verified 11/12/16 00:12)--upset stomach Penicillins Allergy (Verified 11/12/16 00:12)--rash as a child sulfur [From Sulfur-8] Allergy (Verified 11/11/16 22:11)--rash HOME MEDICATIONS: lansoprazole 30mg QD REVIEW OF SYSTEMS GENERAL/CONSTITUTIONAL: Yes: low grade fever No: chills, weakness, loss of appetite. HEAD, EYES, EARS, NOSE AND THROAT: Yes: rhinorrhea No: sore throat, throat swelling. CARDIOVASCULAR: No: chest pain, lightheadedness RESPIRATORY: No: cough, shortness of breath, wheezing GASTROINTESTINAL: No: nausea, vomiting, diarrhea, abdominal pain. GENITOURINARY: No: dysuria, hematuria, frequency, urgency, flank pain. MUSCULOSKELETAL: No: back pain, joint pain, muscle swelling or pain SKIN: No:rash or easy bruising. NEUROLOGIC: No: headache, vertigo, paresthesias, weakness ENDOCRINE: No: unexplained weight gain or loss HEMATOLOGIC/LYMPHATIC: No: anemia, easy bleeding, swelling nodes. PHYSICAL EXAMINATION GENERAL: Awake, alert, and fully oriented, in no acute distress. HEAD: Normal with no signs of trauma. EYES: Pupils equal, round and reactive to light, extraocular movements intact, sclera anicteric, conjunctiva clear. No lid lag. EARS, NOSE, THROAT: (+) tongue has several white patches on it, no erythema of the tongue or pharynx NECK: Normal range of motion, supple without lymphadenopathy, JVD, or masses. LUNGS: Breath sounds equal, clear to auscultation bilaterally. No wheezes, and no crackles. No accessory muscle use. HEART: Regular rate and rhythm, normal S1 and S2 without murmur, rub or gallop. ABDOMEN: Soft, nontender, not distended, normoactive bowel sounds, no guarding, no rebound, no masses. No hepatomegaly or splenomegaly. MUSCULOSKELETAL: Normal range of motion at all joints. No bony deformities or tenderness. No CVA tenderness. UPPER EXTREMITIES: 2+ pulses, warm, well-perfused. No cyanosis. No clubbing. No peripheral edema. LOWER EXTREMITIES: 2+ pulses, warm, well-perfused. No calf tenderness. No peripheral edema. NEUROLOGICAL: Cranial nerves II-XII intact. Normal speech. Normal gait. PSYCHIATRIC: Cooperative. Good eye contact. Appropriate mood and affect. SKIN: Warm, dry, normal turgor, no rashes or lesions noted, normal capillary refill. incision site right breast clean, healed well, no erythema, swelling, warmth or obvious fluid collection 12/02/16 22:08 12/02/16 22:31 Past History - Past Medical History Allergies/Adverse Reactions: Allergies Allergy/AdvReac Type Severity Reaction Status Date / Time erythromycin base Allergy Verified 12/02/16 21:54 Penicillins Allergy Verified 12/02/16 21:54 sulfur [From Sulfur-8] Allergy Verified 12/02/16 21:54 Home Medications: Ambulatory Orders Famotidine [Pepcid -] 40 mg PO DAILY 12/02/16 Paclitaxel [Taxol] 0 mg IV 12/02/16 Cancer: Yes (BREAST) - Psycho/Social/Smoking Cessation Hx Anxiety: No Suicidal Ideation: No Smoking History: Never smoked Have you smoked in the past 12 months: No Hx Alcohol Use: No Drug/Substance Use Hx: No Substance Use Type: None Hx Substance Use Treatment: No ED Treatment Course - LABORATORY CBC & Chemistry Diagram: 12/02/16 22:15 12/02/16 22:15 Medical Decision Making - Medical Decision Making 12/02/16 22:34 DD: viral illness, pneumonia, neutropenic fever, sepsis Will send labs Will contact pt oncologist Will do cxr 12/02/16 22:35 Laboratory Tests 12/02/16 22:05 Urine Blood 2+ H Urine Nitrite Negative Ur Leukocyte Esterase Negative Urine RBC 2-4 Urine WBC 1-2 Ur Epithelial Cells Few Urine Bacteria Few 12/02/16 22:53 Laboratory Tests 11/14/16 11/15/16 12/02/16 08:37 07:26 22:15 WBC 3.2 L 4.4 D Hgb 8.0 L 11.1 D Hct 23.9 L 32.5 D Plt Count 56 L 203 D BUN 7 Creatinine 0.4 L 12/02/16 22:15 WBC Hgb Hct Plt Count BUN 17 D Creatinine 0.4 L Call placed to Dr Lemus Pt refused CXR as she has had multiple xrays in the past 12/02/16 23:06 12/02/16 23:08 Spoke with Fellow Pt can be discaharged to home Pt is not neutropenic Fellow will speak with Dr Lemus re: lab results *DC/Admit/Observation/Transfer Diagnosis at time of Disposition: Upper respiratory infection Qualifiers: URI type: unspecified viral URI Qualified Code(s): J06.9 - Acute upper respiratory infection, unspecified - Discharge Dispostion Disposition: HOME Condition at time of disposition: Stable Admit: No - Patient Instructions Printed Discharge Instructions: DI for Viral Upper Respiratory Infection -- Adult Additional Instructions: Please monitor yourself for fevers Please follow up with Dr Lemus Return to the ER for any other concerns or complaints
[2016-12-02 22:17] LABS: URINE APPEARANCE Clear; URINE BILIRUBIN Negative (NEGATIVE); URINE GLUCOSE (UA) Negative (NEGATIVE); URINE KETONE Negative (NEGATIVE); URINE LEUK ESTERASE Negative (NEGATIVE); URINE NITRITE Negative (NEGATIVE); URINE PROTEIN Trace (NEGATIVE); URINE UROBILINOGEN 0.2 E.U/dl (0.2-1.0)
[2016-12-02 22:19] LABS: URINE BLOOD 2+ (NEGATIVE); URINE COLOR YELLOW
[2016-12-02 22:22] VITALS: BP 109/76; PULSE 85; TEMP 98.5; BMI 18.1
[2016-12-02 22:29] LABS: MEAN PLT VOLUME 7.7 fl (7.5-11.1)
[2016-12-02 22:33] LABS: URINE BACTERIA FEW /hpf (NEGATIVE)
[2016-12-02 22:34] LABS: INR 1.1 (0.82-1.09); MCH 31.2 pg (25.7-33.7); MCHC 34.2 g/dl (32.0-36.0); MEAN CELL VOLUME 9.3 fl (80-96); PROTHROMBIN TIME (PATIENT) 12.3 SEC (10.2-13.0); WHITE BLOOD COUNT 4.4 K/mm3 (4.0-10.8)
[2016-12-02 22:35] LABS: PLATELET COUNT 203 K/MM3 (134-434); RDW 18.9 % (11.6-15.6)
[2016-12-02 22:39] LABS: ALBUMIN 4.1 g/dl (3.5-5.0); ALK PHOS 61 U/L (32-92); ANION GAP 4 (8-16); BILIRUBIN,TOTAL 0.6 mg/dl (0.2-1.0); CALCIUM 9.6 mg/dl (8.4-10.2); CO2 27 mmol/L (22-28); CREATININE 0.4 mg/dl (0.6-1.3); GLUCOSE,RANDOM 100 mg/dl (74-106); SGOT/AST 27 U/L (10-42); SGPT/ALT 36 U/L (10-40); TOT PROT 6.4 g/dl (6.4-8.3)
[2016-12-02 23:25] LABS: PLATELET ESTIMATE ADEQUATE (NORMAL)
[2016-12-02 23:26] LABS: ANISOCYTOSIS 2+
== END 2016-12-02 23:33 | disposition home or self-care (01) ==
LOC: FER 21:50
DX: J06.9 Acute upper respiratory infection, unspecified (principal); B97.89 Other viral agents as the cause of diseases classified elsewhere; Z85.3 Personal history of malignant neoplasm of breast
CPT/HCPCS: 36415; 80053; 81003; 81015; 85027; 85610; 86850; 86900; 86901; 87086; 99281-25